=== PATIENT | female | born 1980 | race American Indian/Alaskan Native ===

== ENCOUNTER 2018-07-26 01:23 | Emergency (ER) | payer MEDICAID ==
[2018-07-26] MEDS ORDERED: DECADRON PO ONE ×3 (04:17→05:00)
[2018-07-26] MEDS ORDERED: BICILLIN L-A IM STA (04:17)
--- NOTE | 2018-07-26 04:26 | Emergency Department Report ---
ED ENT HPI - General Chief complaint: Sore Throat Stated complaint: THROAT PAIN Time Seen by Provider: 07/26/18 04:14 Source: patient Mode of arrival: Ambulatory Limitations: No Limitations - History of Present Illness Initial comments: 37-year-old female emergency department complaining of sore throat off and on for the last became more worse over the past 2-3 days. No fever, but pain with swallowing. No cough or congestion, no runny nose. She reports no chest pain, palpitations, hemoptysis, hematemesis, hematochezia. MD complaint: sore throat Location: throat Severity: moderate Quality: constant Consistency: constant Worsens with: swallowing, eating Associated Symptoms: sore throat. denies: cough, gum swelling, toothache, pain with swallowing, tinnitus, discharge from ear, rhinorrhea - Related Data Previous Rx's Medication Instructions Recorded Last Taken Type Acetaminophen/Codeine [Tylenol #3] 1 tab PO Q6H PRN #20 tab 02/19/15 Unknown Rx Amoxicillin [Trimox CAP] 500 mg PO Q8H #30 capsule 02/19/15 Unknown Rx Loratadine [Claritin] 10 mg PO DAILY #30 tablet 02/19/15 Unknown Rx Prednisone [predniSONE 10 mg 10 mg PO .TAPER #1 tab.ds.pk 02/19/15 Unknown Rx (6-Day Pack, 21 Tabs)] Chlorhexidine Mouthwash [Peridex] 15 ml MM BID #1 bottle 07/26/18 Unknown Rx Lidocaine Viscous 2% 5 ml MM Q3H PRN #120 udc 07/26/18 Unknown Rx Allergies Allergy/AdvReac Type Severity Reaction Status Date / Time No Known Allergies Allergy Unverified 02/19/15 08:19 ED Dental HPI - General Chief complaint: Sore Throat Stated complaint: THROAT PAIN Time Seen by Provider: 07/26/18 04:14 Source: patient Mode of arrival: Ambulatory Limitations: No Limitations - Related Data Previous Rx's Medication Instructions Recorded Last Taken Type Acetaminophen/Codeine [Tylenol #3] 1 tab PO Q6H PRN #20 tab 02/19/15 Unknown Rx Amoxicillin [Trimox CAP] 500 mg PO Q8H #30 capsule 02/19/15 Unknown Rx Loratadine [Claritin] 10 mg PO DAILY #30 tablet 02/19/15 Unknown Rx Prednisone [predniSONE 10 mg 10 mg PO .TAPER #1 tab.ds.pk 02/19/15 Unknown Rx (6-Day Pack, 21 Tabs)] Chlorhexidine Mouthwash [Peridex] 15 ml MM BID #1 bottle 07/26/18 Unknown Rx Lidocaine Viscous 2% 5 ml MM Q3H PRN #120 udc 07/26/18 Unknown Rx Allergies Allergy/AdvReac Type Severity Reaction Status Date / Time No Known Allergies Allergy Unverified 02/19/15 08:19 ED Review of Systems ROS: Stated complaint: THROAT PAIN Other details as noted in HPI Constitutional: denies: chills, fever Eyes: denies: eye pain, eye discharge, vision change ENT: throat pain. denies: ear pain Respiratory: denies: cough, shortness of breath, wheezing Cardiovascular: denies: chest pain, palpitations Endocrine: no symptoms reported Gastrointestinal: denies: abdominal pain, nausea, diarrhea Genitourinary: denies: urgency, dysuria, discharge Musculoskeletal: denies: back pain, joint swelling, arthralgia Skin: denies: rash, lesions Neurological: denies: headache, weakness, paresthesias Psychiatric: denies: anxiety, depression Hematological/Lymphatic: denies: easy bleeding, easy bruising ED Past Medical Hx - Past Medical History Hx Hypertension: Yes Hx Diabetes: Yes Additional medical history: Obesity - Surgical History Past Surgical History?: No - Social History Smoking Status: Never Smoker Substance Use Type: None - Medications Home Medications: Home Medications Medication Instructions Recorded Confirmed Last Taken Type Acetaminophen/Codeine [Tylenol #3] 1 tab PO Q6H PRN #20 tab 02/19/15 Unknown Rx Amoxicillin [Trimox CAP] 500 mg PO Q8H #30 capsule 02/19/15 Unknown Rx Loratadine [Claritin] 10 mg PO DAILY #30 tablet 02/19/15 Unknown Rx Prednisone [predniSONE 10 mg 10 mg PO .TAPER #1 tab.ds.pk 02/19/15 Unknown Rx (6-Day Pack, 21 Tabs)] Chlorhexidine Mouthwash [Peridex] 15 ml MM BID #1 bottle 07/26/18 Unknown Rx Lidocaine Viscous 2% 5 ml MM Q3H PRN #120 udc 07/26/18 Unknown Rx ED Physical Exam - General Limitations: No Limitations General appearance: alert, in no apparent distress - Head Head exam: Present: atraumatic, normocephalic - Eye Eye exam: Present: normal appearance, PERRL, EOMI Pupils: Present: normal accommodation - ENT ENT exam: Present: mucous membranes moist, TM's normal bilaterally, other (pharynx is red and erythematous with some swelling. No exudate) - Neck Neck exam: Present: normal inspection, full ROM, lymphadenopathy (small lymphadenopathy) - Respiratory Respiratory exam: Present: normal lung sounds bilaterally. Absent: respiratory distress, wheezes, rales, rhonchi, chest wall tenderness, accessory muscle use, decreased breath sounds, prolonged expiratory - Cardiovascular Cardiovascular Exam: Present: regular rate, normal rhythm. Absent: systolic murmur, diastolic murmur, rubs, gallop - GI/Abdominal GI/Abdominal exam: Present: soft, normal bowel sounds - Extremities Exam Extremities exam: Present: normal inspection - Back Exam Back exam: Present: normal inspection - Neurological Exam Neurological exam: Present: alert, oriented X3 - Psychiatric Psychiatric exam: Present: normal affect, normal mood - Skin Skin exam: Present: warm, dry, intact, normal color. Absent: rash ED Course Vital Signs 07/26/18 07/26/18 01:27 01:50 Temperature 97.8 F 97.8 F Pulse Rate 97 H 98 H Respiratory 18 18 Rate Blood Pressure 180/94 Blood Pressure 172/90 [Left] O2 Sat by Pulse 96 98 Oximetry Critical care attestation.: If time is entered above; I have spent that time in minutes in the direct care of this critically ill patient, excluding procedure time. ED Disposition Clinical Impression: Pharyngitis Disposition: DC-01 TO HOME OR SELFCARE Is pt being admited?: No Does the pt Need Aspirin: No Condition: Stable Instructions: Pharyngitis (ED), Strep Throat (ED) Referrals: NAFISA SANTOS MD [Primary Care Provider] - 3-5 Days
[2018-07-26] MEDS ORDERED: DECADRON IM ONE (06:00)
[2018-07-26 06:18] VITALS: BP 123/87
== END 2018-07-26 06:24 | disposition home or self-care (01) ==
LOC: ED 01:23
DX: J02.9 Acute pharyngitis, unspecified (principal); R13.10 Dysphagia, unspecified; I10 Essential (primary) hypertension; E11.9 Type 2 diabetes mellitus without complications
CPT/HCPCS: 87430; 96372; 99283; J0561; J1100